=== PATIENT | female | born 1940 ===

== ENCOUNTER 2017-06-11 07:42 | Emergency (ER) | payer MEDICARE ==
[2017-06-11 07:53] VITALS: BMI 30.2
[2017-06-11 07:57] VITALS: O2SAT 96
--- NOTE | 2017-06-11 09:42 | C.PDOC ---
History Of Present Illness Patient reports several month history of bilateral knee pain and left shoulder pain. Patient reports that the pain is worsened with movement and walking. Patient reports that she injured her knees several weeks ago and has been having pain since. Denies new trauma, chest pain, SOB, numbness or weakness. Time Seen by Provider: 06/11/17 08:08 Chief Complaint (Nursing): Lower Extremity Problem/Injury History Per: Patient History/Exam Limitations: no limitations Onset/Duration Of Symptoms: Intermittent Episodes Current Symptoms Are (Timing): Still Present Severity: Mild Recent travel outside of the [place]: No Past Medical History Reviewed: Historical Data, Nursing Documentation, Vital Signs Vital Signs: Last Vital Signs Temp 97.4 F L 06/11/17 07:53 Pulse 74 06/11/17 07:53 Resp 16 06/11/17 07:53 BP 136/86 06/11/17 07:53 Pulse Ox 96 06/11/17 07:53 - Medical History PMH: No Chronic Diseases Surgical History: Appendectomy, Cholecystectomy Family History: States: Unknown Family Hx - Social History Hx Alcohol Use: No Hx Substance Use: No - Immunization History Hx Tetanus Toxoid Vaccination: No Hx Influenza Vaccination: No Hx Pneumococcal Vaccination: No Review Of Systems Except As Marked, All Systems Reviewed And Found Negative. Physical Exam - Physical Exam Appears: Non-toxic, No Acute Distress Skin: Normal Color, Warm, No Rash Head: Atraumatic, Normacephalic Eye(s): bilateral: Normal Inspection Oral Mucosa: Moist Neck: Normal ROM, No Midline Cervical Tenderness, No Paracervical Tenderness, Supple Extremity: No Calf Tenderness, Capillary Refill (< 2 sec), Other ((+) mild swelling and effusion to the bilateral knees. Left shoulder has pain with abduction past 90 degrees) Extremity: Bilateral: Normal Color And Temperature Pulses: Left Radial: Normal, Right Radial: Normal, Left Dorsalis Pedis: Normal, Right Dorsalis Pedis: Normal Neurological/Psych: Oriented x3, Normal Speech, Normal Cranial Nerves, Normal Motor, Normal Sensation Gait: Steady ED Course And Treatment O2 Sat by Pulse Oximetry: 96 (on RA) Pulse Ox Interpretation: Normal - Other Rad bilateral knees X-Ray: Interpreted by Me Interpretation: (+) osteophytes, no fracture or dislocation Medical Decision Making Medical Decision Making: On re-exam, the patient is ambulatory in the ED with steady gait. Disposition - Disposition Referrals: [facility] [Outside] Disposition: HOME/ ROUTINE Disposition Time: 09:43 Condition: GOOD Additional Instructions: Follow up with the medical doctor within 1-2 days. Return if worsened, Prescriptions: Naproxen [Naprosyn] 500 mg PO BID #20 tab traMADol [Ultram] 50 mg PO Q6 PRN #20 tab PRN Reason: Pain Instructions: Osteoarthritis (ED) Print Language: SINHALA - Clinical Impression Clinical Impression: Joint pain
[2017-06-11 09:46] VITALS: BP 122/77; PULSE 66; RESP 18; TEMP 98.2
--- NOTE | 2017-06-11 12:29 | RAD ---
PROCEDURE: Bilateral knees dated 06/11/2017 HISTORY: Knee pain. COMPARISON: No prior study available for comparison FINDINGS: Right knee findings: The current study reveals no evidence of acute displaced fracture nor dislocation. Tricompartmental degenerative osteoarthritis present. . Joint space narrowing lateral greater than medial with large marginal lateral osteophyte formation. Small medial marginal osteophyte formation. The slight overgrowth of the tibial spines. Additionally, moderate to large-sized patellofemoral osteophyte formation. Moderately large suprapatellar joint effusion Left knee findings: No acute displaced fracture nor dislocation. Mild osteoarthritis most notably affecting the medial and patellofemoral compartments. Trace suprapatellar joint effusion. Small anterior superior patella enthesophyte. . Impression: No acute fractures. Degenerative osteoarthritis both knees right more severe than left as above.
== END 2017-06-11 09:59 | disposition home or self-care (01) ==
LOC: C.ER 07:42
DX: M25.562 Pain in left knee (principal); M25.561 Pain in right knee; M25.512 Pain in left shoulder
CPT/HCPCS: 73562; 96372; 99284; J1885

== ENCOUNTER 2017-06-19 09:58 | Emergency (ER) | payer MEDICARE ==
[2017-06-19 10:00] VITALS: BMI 30.2
[2017-06-19 10:08] VITALS: O2SAT 98
--- NOTE | 2017-06-19 10:59 | C.PDOC ---
History Of Present Illness 77 y/o female, whose PMHx includes arthritis, presents to the ED for evaluation of right leg pain for the last 2 weeks. Patient reports taking Naproxen without any improvement. Patient is requesting a CT scan of arms, legs, and back. Otherwise, denies any trauma, injury, extremity weakness/numbness, sensory changes, skin changes, or fever. Time Seen by Provider: 06/19/17 10:14 Chief Complaint (Nursing): Lower Extremity Problem/Injury History Per: Patient History/Exam Limitations: no limitations Onset/Duration Of Symptoms: Days (2 weeks) Current Symptoms Are (Timing): Still Present Recent travel outside of the [place]: No Additional History Per: Patient Past Medical History Reviewed: Historical Data, Nursing Documentation, Vital Signs Vital Signs: Last Vital Signs Temp 98.2 F 06/19/17 13:37 Pulse 65 06/19/17 13:37 Resp 18 06/19/17 13:37 BP 149/88 06/19/17 13:37 Pulse Ox 98 06/19/17 15:47 Surgical History: Appendectomy, Cholecystectomy Family History: States: Unknown Family Hx - Social History Hx Alcohol Use: No Hx Substance Use: No - Immunization History Hx Tetanus Toxoid Vaccination: No Hx Influenza Vaccination: No Hx Pneumococcal Vaccination: No Review Of Systems Except As Marked, All Systems Reviewed And Found Negative. Constitutional: Negative for: Fever, Chills Musculoskeletal: Positive for: Leg Pain (right) Skin: Negative for: Rash, Bruising Neurological: Negative for: Weakness, Numbness Physical Exam - Physical Exam Appears: Non-toxic, No Acute Distress Skin: Normal Color, Warm, Dry Head: Atraumatic, Normacephalic Eye(s): bilateral: Normal Inspection Neck: Normal, Normal ROM Chest: Symmetrical, No Tenderness Cardiovascular: Rhythm Regular, No Edema, No Murmur Respiratory: Normal Breath Sounds, No Accessory Muscle Use Gastrointestinal/Abdominal: Normal Exam, Soft, No Tenderness Back: Vertebral Tenderness (ls spine area) Extremity: Normal ROM, No Pedal Edema, Calf Tenderness (right), Capillary Refill (< 2 sec.), No Deformity, No Swelling Extremity: Bilateral: Atraumatic, Normal Color And Temperature, Normal ROM Pulses: Left Dorsalis Pedis: Normal, Right Dorsalis Pedis: Normal Neurological/Psych: Oriented x3, Normal Speech, Normal Cognition, Normal Motor, Normal Sensation ED Course And Treatment O2 Sat by Pulse Oximetry: 98 (on RA) Pulse Ox Interpretation: Normal - Other Rad LS spine x-ray X-Ray: Viewed By Me, Read By Radiologist Interpretation: FINDINGS: BONES: The current study reveals no evidence of acute compression fractures nor retropulsed fragments. Chronic appearing anterior stature loss of the T12 segment felt be degenerative in origin. . There is mild anterior subluxation of the L4 over L5 segment with minimal anterior subluxation L5 over S1 mild posterior subluxation of T12 over L1. DISC SPACES: Multilevel degenerative spondylosis. Changes which most notably affect T12-L1, L1 and to L5-S1 levels include varying degrees disc space narrowing more so along the posterior disc margins, endplate eburnation and anterolateral as well as small posterior osteophyte formation. The facet joints are hypertrophic L5-S1 through L1-L2 levels in decreasing order of severity. OTHER FINDINGS: None. IMPRESSION: No evidence of acute compression fractures however there is mild chronic anterior stature loss of the T12 segment. Multilevel degenerative spondylosis with varying degrees of anterior or posterior subluxation at the aforementioned levels. Progress Note: Venous duplex scan of lower extremities, LS spine x-ray, ordered and reviewed. Case was d/w patient's PMD who will see patient in her office. On reassessment, patient is resting comfortably, no acute distress. Patient is amublatory in the ED with steady gait. Disposition - Disposition Referrals: Grecia Kramer MD [Non-Staff] - Bright Roper III, MD [Staff Provider] - Disposition: HOME/ ROUTINE Disposition Time: 13:33 Condition: STABLE Additional Instructions: Follow up with PMD and Orthopedist within 1-2 days. Return to ED if feel worse. Prescriptions: traMADol/Acetaminophen [Ultracet 325 MG-37.5 MG] 1 tab PO Q6 PRN #30 tab PRN Reason: Pain Instructions: Lumbar Radiculopathy (ED) Print Language: MALIAN - Clinical Impression Clinical Impression: Lumbar radiculopathy - PA / INSPECTOR ALIGNING / Resident Statement MD/DO has reviewed & agrees with the documentation as recorded. - Scribe Statement The provider has reviewed the documentation as recorded by the Scribe Hemalatha Vallejo All medical record entries made by the Scribe were at my direction and personally dictated by me. I have reviewed the chart and agree that the record accurately reflects my personal performance of the history, physical exam, medical decision making, and the department course for this patient. I have also personally directed, reviewed, and agree with the discharge instructions and disposition.
--- NOTE | 2017-06-19 13:36 | RAD ---
PROCEDURE: Lumbar spine dated 06/19/2017. HISTORY: LE pain COMPARISON: No prior. FINDINGS: BONES: The current study reveals no evidence of acute compression fractures nor retropulsed fragments. Chronic appearing anterior stature loss of the T12 segment felt be degenerative in origin. . There is mild anterior subluxation of the L4 over L5 segment with minimal anterior subluxation L5 over S1 mild posterior subluxation of T12 over L1. DISC SPACES: Multilevel degenerative spondylosis. Changes which most notably affect T12-L1, L1 and to L5-S1 levels include varying degrees disc space narrowing more so along the posterior disc margins, endplate eburnation and anterolateral as well as small posterior osteophyte formation. The facet joints are hypertrophic L5-S1 through L1-L2 levels in decreasing order of severity. OTHER FINDINGS: None. IMPRESSION: No evidence of acute compression fractures however there is mild chronic anterior stature loss of the T12 segment. Multilevel degenerative spondylosis with varying degrees of anterior or posterior subluxation at the aforementioned levels.
[2017-06-19 13:38] VITALS: BP 149/88; PULSE 65; RESP 18; TEMP 98.2
--- NOTE | 2017-06-22 11:04 | VASCLAB ---
PROCEDURE: Lower Extremity Venous Duplex Exam. HISTORY: pain, calf tenderness PRIORS: None. TECHNIQUE: Bilateral common femoral, femoral, popliteal and posterior tibial, peroneal and great saphenous veins were evaluated. Flow was assessed with color Doppler, compressibility, assessment of phasic flow and augmentation response. Report prepared by Gerard Chapin, ERASTO, RVT FINDINGS: RIGHT: 1. Common Femoral Vein: 1.1. Compressibility - Fully compressible: Thrombus - None : Flow - Phasic: Augmentation -Normal: Reflux - None. 2. Femoral Vein: 2.1. Compressibility - Fully compressible: Thrombus - None : Flow - Phasic: Augmentation -Normal: Reflux - None. 3. Popliteal Vein: 3.1. Compressibility - Fully compressible: Thrombus - None : Flow - Phasic: Augmentation -Normal: Reflux - None. 4. Posterior Tibial Vein: 4.1. Compressibility - Fully compressible: Thrombus - None: Flow - Phasic: Augmentation -Normal: Reflux - None. 5. Peroneal Vein: 5.1. Compressibility - Fully compressible: Thrombus - None: Flow - Phasic: Augmentation -Normal: Reflux - None. 6. Great Saphenous Vein: 6.1. Compressibility - Fully compressible: Thrombus - None: Flow - Phasic: Augmentation - Normal: Reflux - None. LEFT: 1. Common Femoral Vein: 1.1. Compressibility - Fully compressible: Thrombus - None: Flow - Phasic: Augmentation -Normal: Reflux - None. 2. Femoral Vein: 2.1. Compressibility - Fully compressible: Thrombus - None: Flow - Phasic: Augmentation -Normal: Reflux - None. 3. Popliteal Vein: 3.1. Compressibility - Fully compressible: Thrombus - None : Flow - Phasic: Augmentation -Normal: Reflux - None. 4. Posterior Tibial Vein: 4.1. Compressibility - Fully compressible: Thrombus - None: Flow - Phasic: Augmentation -Normal: Reflux - None. 5. Peroneal Vein: 5.1. Compressibility - Fully compressible: Thrombus - None: Flow - Phasic: Augmentation -Normal: Reflux - None. 6. Great Saphenous Vein: 6.1. Compressibility - Fully compressible: Thrombus - None: Flow - Phasic: Augmentation - Normal: Reflux - None. OTHER FINDINGS: Right: None significant. Left: None significant. IMPRESSION: Right: No evidence of deep or superficial vein thrombosis of the right lower extremity. Normal valve function noted of the right side. Left: No evidence of deep or superficial vein thrombosis of the left lower extremity. Normal valve function noted of the left side.
== END 2017-06-19 13:39 | disposition home or self-care (01) ==
LOC: C.ER 09:58
DX: M54.16 Radiculopathy, lumbar region (principal)

== ENCOUNTER 2017-11-06 07:57 | Emergency (ER) | payer MEDICARE ==
[2017-11-06 07:58] VITALS: BMI 30.2
[2017-11-06 08:03] VITALS: TEMP 97.9
--- NOTE | 2017-11-06 08:29 | C.PDOC ---
History Of Present Illness 77 year old female presents to ED for evaluation of chronic right knee pain, and swelling. Patient states she twisted her right knee while stepping off a curb 2 days ago. Patient is requesting a cane. Otherwise, denies change in sensation, or any other complaints at this time. Time Seen by Provider: 11/06/17 08:16 Chief Complaint (Nursing): Lower Extremity Problem/Injury History Per: Patient History/Exam Limitations: no limitations Onset/Duration Of Symptoms: Days Current Symptoms Are (Timing): Still Present Recent travel outside of the [place]: No Additional History Per: Patient - Knee Description Of Injury: Twisted Past Medical History Reviewed: Historical Data, Nursing Documentation, Vital Signs Vital Signs: Last Vital Signs Temp 97.9 F 11/06/17 08:02 Pulse 82 11/06/17 08:48 Resp 18 11/06/17 08:48 BP 126/79 11/06/17 08:48 Pulse Ox 97 11/06/17 09:07 Surgical History: Appendectomy, Cholecystectomy Family History: States: Unknown Family Hx - Social History Hx Alcohol Use: No Hx Substance Use: No - Immunization History Hx Tetanus Toxoid Vaccination: No Hx Influenza Vaccination: No Hx Pneumococcal Vaccination: No Review Of Systems Except As Marked, All Systems Reviewed And Found Negative. Constitutional: Negative for: Fever, Chills Musculoskeletal: Positive for: Leg Pain (right knee pain) Skin: Negative for: Rash, Bruising Neurological: Negative for: Weakness, Numbness Physical Exam - Physical Exam Appears: Non-toxic, No Acute Distress Skin: Normal Color, Warm, Dry Head: Atraumatic, Normacephalic Eye(s): bilateral: Normal Inspection Extremity: Normal ROM (FROM at right knee joint), Tenderness (tenderness to anterior and medial aspect of right knee), Capillary Refill (less than 2 seconds ), No Deformity, Swelling (minimal swelling to right knee) Extremity: Bilateral: Normal Color And Temperature, Normal ROM Pulses: Left Dorsalis Pedis: Normal, Right Dorsalis Pedis: Normal Neurological/Psych: Oriented x3, Normal Speech, Normal Motor, Normal Sensation Gait: Steady ED Course And Treatment O2 Sat by Pulse Oximetry: 97 (RA) Pulse Ox Interpretation: Normal Medical Decision Making Medical Decision Making: Prior records reviewed, patient was seen here in the past for similar complaints. X-ray done at the last visit shows arthritic changes. Knee brace applied. Advise patient to follow up with PCP. Disposition Counseled Patient/Family Regarding: Diagnosis, Need For Followup, Rx Given - Disposition Referrals: Violette Lester MD [Staff Provider] - Disposition: HOME/ ROUTINE Disposition Time: 08:50 Condition: STABLE Additional Instructions: Vaya a cortes mdico o la clnica en 2-5 tubbs sin falta, para mas evaluacin. [place] los medicamentos roger indicado. Volver a la vincent de emergencia en cualquier momento si los sntomas persisten o empeoran. 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 - Scribe Statement The provider has reviewed the documentation as recorded by the Scribe Hemalatha Vallejo All medical record entries made by the Scribe were at my direction and personally dictated by me. I have reviewed the chart and agree that the record accurately reflects my personal performance of the history, physical exam, medical decision making, and the department course for this patient. I have also personally directed, reviewed, and agree with the discharge instructions and disposition.
[2017-11-06 08:49] VITALS: BP 126/79; PULSE 82; RESP 18
[2017-11-06 08:50] VITALS: O2SAT 97
== END 2017-11-06 09:10 | disposition home or self-care (01) ==
LOC: C.ER 07:57
DX: M25.561 Pain in right knee (principal)